=== PATIENT | male | born 1930 ===

== ENCOUNTER 2021-09-10 22:15 | Inpatient (IN) | payer MEDICARE ==
[~2021-09-10] VITALS: Ht 175.3 cm; Wt 75.8 kg
[2021-09-10 22:42] LABS: BASOPHILS ABSOLUTE AUTO 0.05 K/mm3 (0.00-0.23); BASOPHILS PERCENT AUTO 1 % (0-2); EOSINOPHILS ABSOLUTE AUTO 0.24 K/mm3 (0.00-0.68); EOSINOPHILS PERCENT AUTO 3 % (0-6); Hematocrit 37.9 % (37.0-53.0); Hemoglobin 12.7 g/dL (13.5-17.5); IMMATURE GRAN ABSOLUTE AUTO 0.13 K/mm3 (0.00-0.10); IMMATURE GRAN PERCENT AUTO 1 % (0-1); LYMPHOCYTES ABSOLUTE AUTO 2.24 K/mm3 (0.84-5.20); LYMPHOCYTES PERCENT AUTO 25 % (21-46); MONOCYTES ABSOLUTE AUTO 1.03 K/mm3 (0.16-1.47); MONOCYTES PERCENT AUTO 11 % (4-13); Mean Corpuscular HGB 31.7 pg (26.0-34.0); Mean Corpuscular HGB Conc 33.5 g/dL (31.5-36.5); Mean Corpuscular Volume 95 fL (80-100); Mean Platelet Volume 10.1 fL (9.1-12.4); NEUTROPHILS ABSOLUTE AUTO 5.42 K/mm3 (1.96-9.15); NEUTROPHILS PERCENT AUTO 60 % (41-73); Platelet Count 228 K/mm3 (150-400); RDW Coefficient Variation 13.2 % (11.7-14.2); RDW Standard Deviation 46.2 fL (35.1-46.3); Red Blood Cell Count 4.01 M/mm3 (4.30-5.90); White Blood Cell Count 9.11 K/mm3 (4.00-11.30)
[2021-09-10 22:51] LABS: Albumin, Blood 3.4 g/dL (3.4-5.0); Albumin/Globulin Ratio 1.1 (0.8-1.8); Bilirubin, Total 0.2 mg/dL (0.1-1.0); Bun/Creatinine Ratio 26.2 (12.0-20.0); Calcium, Blood 9.2 mg/dL (8.5-10.1); Creatinine, Blood 1.68 mg/dL (0.60-1.20); Globulin, Blood 3.2 g/dL (2.2-4.0); Potassium, Blood 4.6 mmol/L (3.5-5.5); Total Protein, Blood 6.6 g/dL (6.4-8.2)
[2021-09-10 22:54] LABS: International Normalized Ratio 1.04; Prothrombin Time Results 10.9 Sec (9.7-11.5)
[2021-09-11 02:59] LABS: CHOL/HDL RATIO 8.2; Cholesterol 214 mg/dL (50-200); HDL Cholesterol 26 mg/dL (>39); Low Density Lipoprotein Chol 131 mg/dL (0-110); Triglycerides 287 mg/dL (30-160); Very Low Density Lipoprot Chol 57 mg/dL (6-32)
[2021-09-11 04:51] LABS: BASOPHILS ABSOLUTE AUTO 0.06 K/mm3 (0.00-0.23); BASOPHILS PERCENT AUTO 0 % (0-2); EOSINOPHILS ABSOLUTE AUTO 0.03 K/mm3 (0.00-0.68); EOSINOPHILS PERCENT AUTO 0 % (0-6); Hematocrit 40.3 % (37.0-53.0); Hemoglobin 13.4 g/dL (13.5-17.5); IMMATURE GRAN ABSOLUTE AUTO 0.17 K/mm3 (0.00-0.10); IMMATURE GRAN PERCENT AUTO 1 % (0-1); LYMPHOCYTES ABSOLUTE AUTO 1.33 K/mm3 (0.84-5.20); LYMPHOCYTES PERCENT AUTO 7 % (21-46); MONOCYTES ABSOLUTE AUTO 1.27 K/mm3 (0.16-1.47); MONOCYTES PERCENT AUTO 7 % (4-13); Mean Corpuscular HGB 31.8 pg (26.0-34.0); Mean Corpuscular HGB Conc 33.3 g/dL (31.5-36.5); Mean Corpuscular Volume 96 fL (80-100); Mean Platelet Volume 10.1 fL (9.1-12.4); NEUTROPHILS ABSOLUTE AUTO 16.41 K/mm3 (1.96-9.15); NEUTROPHILS PERCENT AUTO 85 % (41-73); Platelet Count 233 K/mm3 (150-400); RDW Coefficient Variation 13.2 % (11.7-14.2); RDW Standard Deviation 46.3 fL (35.1-46.3); Red Blood Cell Count 4.22 M/mm3 (4.30-5.90); White Blood Cell Count 19.27 K/mm3 (4.00-11.30)
--- NOTE | 2021-09-11 05:08 | NUR ---
ASSUMED CARE/V TACH PATIENT ARRIVED TO ICU9 FROM ED @ 0420. ON ROOM AIR WITH SPO2 MID 90'S. BP ELEVATED WITH SBP 150'S-170'S MAPS IN 100'S. LARGE PURPLE DISCOLORATION WITH HEMATOMA TO LT EYE AND HEMATOMA TO LT FOREHEAD WITH ABRASION-GAUZE AND TAPE TO SITE. BRUISING PRESENT ON LT SHOULDER AND LT UPPER ARM. HEMATOMA TO RT AC WITH BLEEDING FROM PUNCTURE SITE. 18G IV TO THE LT AC AND 20G TO THE RT FA PATENT. LT FACIAL DROOP, SLURRED SPEECH, AND FLACCID LT ARM PRESENT. ABLE TO MOVE LT LEG ON COMMAND. REPORT COMPLETED WITH TURPENTINE DISTILLER. WHILE IN THE ROOM ASSESSING PATIENT HE HAD A 13 BEAT RUN OF VTACH. BP REMAINED ELEVATED STATED ABOVE AND RESPONDED TO VERBAL STIMULI. CALL MADE TO DR. COELLO TO GIVE UPDATE. PENDING MAG RESULT; NO OTHER ORDERS RECIEVED. UPON SUBSEQUENT EVENTS OF VTACH, EVIDENCE OF PACER ENDING V TACH EPISODES SEEN ON STRIPS. STRIPS HAVE BEEN ADDED TO CHART.
[2021-09-11 05:13] LABS: Calcium, Blood 9.4 mg/dL (8.5-10.1); Creatinine, Blood 1.63 mg/dL (0.60-1.20); Potassium, Blood 4.5 mmol/L (3.5-5.5)
[2021-09-11 07:48] LABS: Source, Urine Foley catheter
[2021-09-11 07:54] LABS: Appearance, Urine Clear (Clear); Bilirubin, Urine Neg (Neg); Blood, Urine Neg (Neg); Color, Urine Yellow (P-Yellow); Glucose Qualitative, Urine Neg (Neg); Ketones, Urine Neg (Neg); Leukocyte Esterase, Urine Neg (Neg); Nitrite, Urine Neg (Neg); Protein, Urine 2+ (Neg); Specific Gravity, Urine 1.015 (1.003-1.022); Urobilinogen, Urine NORM (Normal)
--- NOTE | 2021-09-11 08:00 | NUR ---
PT AWAKE AND ALERT-ORIENTED TO SELF ONLY. 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 PT LEFT EYE WITH LARGE HEMATOMA AND APPEARS TO BE SWOLLEN SHUT. PT REPORTS PAIN WHEN RN ATTEMPTED TO OPEN IT TO CHECK HIS PUPIL. RIGHT PUPIL 3 MM AND BRISK. GAUZE BANDAGE TO PT FOREHEAD IS C/D/I. LEFT SIDED FACIAL DROOP NOTED. PT HAS LEFT SIDED NEGLECT AND WEAKNESS. ONLY GROSS MOVEMENT NOTED TO LEFT UPPER AND LOWER EXTREMITY. PT FREQUENTLY ASKING TO GET OOB TO "GO TO THE BATHROOM." PT REMINDED SEVERAL TIMES THAT HE HAS A CATHETER, BUT PT NOT ABLE TO COMPREHEND. PT REACHES FOR LINES AND TUBES WHEN NOT RESTRAINED. PT HAS WHAT APPEARS TO BE AN ICD TO LEFT CHEST. ATRIAL PACING NOTED AND OCCASIONAL OVERRIDE PACING NOTED WITH WHAT APPEARS TO BE AF WITH RVR AND BBB-SEE ELECTRONIC RHYTHM STRIP. NO NOTED EDEMA. SBP TRENDING 150-160'S/80-90'S. LUNGS CLEAR. NO NOTED SOB. HOWEVER, PT SATS DOWN TO 80'S WHILE SLEEPING-THERFORE, PLACED ON 2 LITERS NASAL CANULA. PT NPO DUE TO CVA. NO NOTED GI DISTRESS. SCATTERED BRUISES TO LEFT SIDE. NO NOTED SKIN BREAKDOWN. MOSS TO BSD WITH ADEQUATE AMOUNT OF CLEAR, YELLOW URINE TO BSD. PT SON SHAWN UPDATED TO CURRENT STATUS AND PLAN OF CARE.
[2021-09-11 08:07] LABS: Bacteria Rare /hpf; Hyaline Casts Rare /lpf (0-2); Squamous Epithelial Cells Rare /hpf (Few)
--- NOTE | 2021-09-11 12:00 | NUR ---
NO ACUTE NEURO CHANGES. VS REMAIN STABLE. PT RESTS INTERMITTENTLY WHEN NOT DISTURBED. BOTH PT SON AND DAUGHTER UPDATED TO PT STATUS AND PLAN OF CARE.
--- NOTE | 2021-09-11 15:58 | NUR ---
NO NEURO CHANGES. PT ASKING TO GET OOB TO "GO TO THE BATHROOM." ATTEMPTED TO RE-ORIENT PATIENT UNSUCCESSFULLY. TEMP 99.[address] LAURENT IN TO SEE PT-FULL UPDATE GIVEN. PLAN TO DO MRI TOMORROW. DR. LAURENT UPDATED PT SON SHAWN.
--- NOTE | 2021-09-11 18:21 | NUR ---
PT RESTING QUIETLY WHEN NOT DISTURBED. OPENS RIGHT EYE TO VOICE AND COOPERATIVE WITH CARE. PT REMAINS CONFUSED, BUT PLEASANT. LEFT SIDED FACIAL DROOP AND LEFT SIDED NEGLECT CONTINUES. PT NPO. ATTEMPTED TO CONTACT DR. LAURENT IN REGARDS TO IVF-MESSAGE LEFT FOR DR. LAURENT.
--- NOTE | 2021-09-11 20:17 | NUR ---
ASSUMED CARE PATIENT LYING IN BED WITH EYES CLOSED. NC IN NOSTRILS AT 0.5 LPM WITH SPO2 MID 90'S. SOMNOLENT, DIFFICULT TO AROUSE. ORIENTED TO SELF, STATES HE IS IN [place] AND DOES NOT KNOW THE YEAR. FOLLOWS SIMPLE COMMANDS. RT PUPIL 2MM AND BRISK RESPONSE TO LIGHT. UNABLE TO ASSESS LT EYE D/T HEMATOMA AND SWELLING. LT SIDE NEGLECT WITH LT SIDED FACIAL DROOP. HEMATOMA TO LT EYELID, LT FOREHEAD, RT INNER EYELID. BRUISING TO MARY ANN AND LT SHOULDER SCATTERED BRUISING ON BUE, SCABS TO BLE. ATRIAL PACED RHYTHM WITH RATE 70'S. BP STABLE WITH SBP 130'S, MAPS 90'S. REPORT COMPLETED WITH BRYANT RN.
--- NOTE | 2021-09-11 21:32 | NUR ---
FLUIDS BEDSIDE SWALLOW EVAL COMPLETED AND FAILED. CALL MADE TO DR. HERNANDEZ FOR IV FLUID INITIATION. ORDERD RECIEVED.
--- NOTE | 2021-09-11 22:53 | NUR ---
MEDICATION LIST CALL MADE TO LAMAR KANG FOR MEDICATION LIST. SPOKE WITH RHETT IN COVID UNIT. REQUESTED MEDICATION LIST BE FAXED TO ICU.
[2021-09-11] MEDS ORDERED: ACET325 PO (23:48)
[2021-09-11] MEDS ORDERED: Amlodipine Bes2.5 MG PO (23:49)
[2021-09-11] MEDS ORDERED: DONE10 PO (23:51)
[2021-09-11] MEDS ORDERED: GLUCHON PO (23:51)
[2021-09-11] MEDS ORDERED: FISH OIL 1,2001 EAC7 PO (23:51)
[2021-09-11] MEDS ORDERED: LOPE2C PO (23:52)
[2021-09-11] MEDS ORDERED: MEMA10 PO (23:53)
[2021-09-11] MEDS ORDERED: METF500 PO (23:54)
[2021-09-11] MEDS ORDERED: MULTI-VITAMIN1 EAC2 PO (23:54)
[2021-09-11] MEDS ORDERED: OLAN2.5 PO (23:55)
[2021-09-11] MEDS ORDERED: SERT100 PO (23:56)
[2021-09-11] MEDS ORDERED: VITAMIN D310 MC4 PO (23:56)
--- NOTE | 2021-09-12 05:32 | NUR ---
SHIFT SUMMARY PATIENT IS STILL ORIENTED TO ONLY SELF. SLEPT THROUGH MOST OF SHIFT. AFTER INITIAL PERIOD OF AGITATION AT BEGINNING OF SHIFT, SOOTHING MUSIC ON TV TURNED ON AND PATIENT BECAME LESS AGITATED AND FELL ASLEEP. MOSS DRAINED 375ML DARK YELLOW URINE OUT. D5 1/2NS STARTED AT 100ML/HR. CALL MADE TO LAMAR KANG FOR MED LIST; MEDS RECONCILED. PATIENT TAKES METFORMIN FOR T2DM; CBG CHECKED AT MIDNIGHT AND WAS 180. DAUGHTER CALLED AT BEGINNING OF SHIFT AND UPDATE GIVEN. SWELLING OF LT EYE IMPROVED, BUT NOW THERE IS PURPLE DISCOLORATE ON THE FRONT OF EAR ADN LT SIDE NECK. PATIENT DENIED PAIN THROUGHOUT SHIFT. NO OTHER MAJOR CHANGES DURING SHIFT.
--- NOTE | 2021-09-12 08:00 | NUR ---
PT SLEEPING WHEN NOT DISTURBED. PT OPENS EYES TO VOICE. LEFT ORBITAL AND FACIAL SWELLING SEEMS IMPROVED, BUT THERE IS MORE BRUISING NOTED ON THE LEFT SIDE OF THE NECK. PUPILS 2MM AND BRISK. LEFT FACIAL DROOP AND NEGLECT CONTINUES. UNABLE TO GET PT TO FOLLOW COMMANDS TO MOVE HIS LEFT SIDE. SPEECH SEEMS MORE GARBLED THIS AM. TEMP 99.3. ECG REMAINS ATRIAL PACED WITH MOVE FREQUENT ECTOPY AND OVERRIDE PACING NOTED. SBP TRENDING 150'S. LUNGS REMAINS CLEAR, BUT DIMINISHED IN THE BASES. SATS>90% ON 0.5 LITERS NASAL CANULA. NO NOTED COUGH OR SOB. PT REMAINS NPO HE IS HIGH RISK FOR ASPIRATION. MOSS WITH SMALL AMOUNT OF DARK, YELLOW URINE TO BSD. COCCYX/BUTTOCK WITH MEPILEX PREVENTATIVE MEASURE-DRESSING PEELED BACK TO CONFIRM THAT SKIN REMAINS INTACT. THERE IS A SMALL SKIN TEAR TO THE LEFT WRIST THAT HAS A FOAM DOT IN PLACE. PT HAS SCATTERED BRUISING THROUGH OUT HIS LEFT SIDE. WILL DISCUSS WHETHER OR NOT LABS AND MRI TO BE DONE TODAY WITH DR. MEDEIROS. WILL REQUEST THAT ST, PT, OT EVALUATE WHETHER PATIENT IS ABLE TO REHABILITATE.
--- NOTE | 2021-09-12 11:23 | NUR ---
PT QUITE AGITATED. PT CRIES OUT FOR HELP AND DEMANDS "WATER." RN'S HAVE EXPLAINED TO PT FREQUENTLY THAT HE HAD HAD A STROKE AND THAT IT IS NOT SAFE FOR HIM TO HAVE WATER. HOWEVER, WITH THE BASELINE DEMENTIA AND THE LEFT NEGLECT, PT IS UNABLE TO COMPREHEND. FREQUENT ORAL CARE DONE. PT GIVEN A BATH AND LINEN CHANGE COMPLETED-TOLERATED FAIR. DR. MEDEIROS HERE TO SEE PT-FULL UPDATE GIVEN. PT TO HAVE CT SCAN OF THE HEAD INSTEAD OF MRI HE HAS ICD AND HX STENTS. PT NOW MEDICAL FLOOR STATUS. DR. MEDEIROS TO UPDATE FAMILY PENDING CT RESULTS.
--- NOTE | 2021-09-12 16:00 | NUR ---
CT COMPLETE-NO ACUTE NEURO CHANGES. PT SLEEPS INTERMITTENTLY. PT QUITE AGITATED WHEN AWAKE. PT REMAINS ORIENTED TO SELF ONLY. FOLLOWS COMMANDS AT TIMES. PT CRIES OUT FOR HELP AND REQUESTS WATER. PT REMAINS AT HIGH RISK FOR ASPIRATION. ORAL CARE DONE VERY FREQUENTLY.
--- NOTE | 2021-09-12 16:26 | NUR ---
PT SCREAMING FOR "HELP!" PT REQUESTING "I WANT TO SEE YOUR BOSS." ORAL CARE DONE, YANKEUR SUCTION PRODUCTIVE OF LARGE AMOUNT OF THICK, YELLOW SECRETIONS. PT HAS ZERO GAG REFLEX ON THE LEFT. PRAFUL, NURSING JAVA LEAD ENGINEER ATTEMPTED TO RE-ORIENT AND CONSOLE PT-PT REMAINS CONFUSED AND VERY AGITATED AT THIS TIME. CT RESULTS ARE COMPLETE- HAS ATTEMPTED TO CONTACT PT FAMILY TO DISCUSS PROGNOSIS AND PLAN OF CARE.
--- NOTE | 2021-09-12 17:22 | NUR ---
Case conferenced with ICU nursing re: current status and concerns, identified palliative care indicators. Plan to see pt and reach out to family as soon as staffing will allow.
--- NOTE | 2021-09-12 18:15 | NUR ---
PT APPEARS TO BE LESS AGITATED AT THIS TIME. PT RESTING QUIETLY WITHOUT NOTED DISTRESS.
--- NOTE | 2021-09-12 19:30 | NUR ---
ASSUMED CARE PATIENT LYING IN BED SLEEPING. EASILY AROUSABLE FROM SLEEP. ON ROOM AIR. TRACKS SOUND ON RT SIDE; LT SIDE NEGLECT. FOLLOWS COMMANDS. MOSS PATENT AND DRAINING TO GRAVITY. D5 IN 1/2 NS INF @ 100ML/HR. REPORT COMPLETED WITH BRYANT GALAVIZ.
--- NOTE | 2021-09-12 22:40 | NUR ---
DAUGHTER UPDATED ALLI SHARIF, CALLED FOR UPDATE ON PATIENT. UPDATE GIVEN. CALL TRANSFERRED INTO ROOM AND ASSISTED PATIENT WITH TALKING TO ALLI USING ROOM PHONE.
--- NOTE | 2021-09-13 07:56 | NUR ---
Assumed care. Pt sleeping, right wrist restaint in place. Bag changed on fluids.
--- NOTE | 2021-09-13 09:08 | NUR ---
PT NOW HAS COMFORT CARE ORDERS. ROXANOL GIVEN PT REPORTED DISCOMFORT. I WILL CALL FAMILY TO LET THEM KNOW THEY CAN COME VISIT 2 AT A TIME NOW THAT PT HAS COMFORT CARE ORDERS IN PLACE.
--- NOTE | 2021-09-13 09:37 | NUR ---
Pt son Alvaro GutiérrezMikala Called this AM. He was asking about discharge planning. The hope of the family is to get pt back up to [facility] facility with hospice. The son is going to come visit today and will be driving down from [place]. CHARLES for [employer] watch caser.
--- NOTE | 2021-09-13 10:40 | NUR ---
Assumed care [id number], Report given to Estephania on medical floor and pt transferred. Shift note: Pt has comfort care orders. Roxanol given x1 (5mg). Family was contacted this AM and will be coming to visit, will call to update on new room number.
--- NOTE | 2021-09-13 10:54 | NUR ---
Updated pt (Faby) and transferrred call to the medical floor for pt to talk with if he is able to.
--- NOTE | 2021-09-13 13:19 | NUR ---
TOOK OVER CARE AT 1055. GOT REPORT PRIOR TO RECIEVING PT IN ROOM. PT VERY TIRED DID COMPLAIN OF PAIN AND WAS TREATED PER EMAR. PT HAD CALL AND WAS ABLE TO TALK WITH PHONE HELD UP TO HIS EAR. PT RESTING AT THIS TIME WILL CONTINUE TO MONITOR.
--- NOTE | 2021-09-13 17:46 | NUR ---
Case conference with pt's bedside RN after transition to comfort care and transfer to medical floor. Pt sleeping and looks comfortable at this time. He is not restless or agitated. Discussed plan of care, prn medications that are working well for pt and plan for him to return to [facility] with hospice support. EMR reviewed and CM working with family on d/c planning. Will reassess for s/s management tomorrow.
--- NOTE | 2021-09-13 18:17 | NUR ---
PT AOX1 AND COOPERATIVE OF CARE. PT WAS ABLE TO TALK A BIT WHEN HE ARRIVED, BUT STATED HE HAD PAIN. PT WAS TREATED PER EMAR FOR COMFORT CARE AND HAS BEEN COMFORTABLE NEEDED REPOSITIONED Q2 HRS. PT IS RESTING COMFORTABLY AT THIS TIME WILL CONTINUE TO MONITOR.
--- NOTE | 2021-09-14 06:19 | NUR ---
PM SHIFT SUMMARY PATIENT SLEPT THE ENTIRE EVENING UNTIL ABOUT 0500, WHEN HE BEGAN TO ASK FOR HELP. UPON QUESTIONING, HE STATED HE WAS IN PAIN. I GAVE 10MG ROXINOL, WHICH IS EQUAL TO PREVIOUS DOSES HE HAD BEEN GIVEN. AT RESSASSMENT TIME, PATIENT WAS SOUND ASLEEP AGAIN. HE HAS A LOT OF BRUSING AND HEMATOMA ON LEFT SIDE OF FACE, FOREHEAD AND NACK, WELL SOME MINOR BRUISING ON BUE. HE IS COMFORT CARE AT THIS TIME.
[2021-09-14] MEDS ORDERED: Chromium Pico400 MCG PO (08:24)
[2021-09-14] MEDS ORDERED: DULCOLAX400 MG/5 M PO (08:25)
--- NOTE | 2021-09-14 13:18 | NUR ---
Comfort care visit made this am. Pt sleeping and did not wake to voice. Brief restlessness noted with arm waving & picking at sheet. Pt did not demonstrate any other nonverbal indicators of pain/distress. Dk yellow/brown urine noted in yang drainage bag, scant amount since shift change. No visitors.
--- NOTE | 2021-09-14 18:12 | NUR ---
PT HAS BEEN RESTING COMFORTABLY ALL DAY. PT DENIED PAIN AT START OF SHIFT AND THEN LATER IN THE DAY REQUESTED PAIN MEDS. PT DID WELL WITH THIS AND WAS STILL ABLE TO WAKE UP AND ANSWER QUESTIONS WHEN NEEDED. PT TURNED Q2 HRS AND REPOSITIONED.NO DISTRESS NOTE.
--- NOTE | 2021-09-15 07:28 | NUR ---
PM SHIFT SUMMARY PATIENT SLEPT THE ENTIRE SHIFT. MY SPINDLE PLUMBER AND I CHECKED ON HIM QUITE A FEW TIMES TO SEE HE WAS MOVING HIS ARM AND SNORING QUITE HEAVILY. HE ONLY WOKE ONCE BRIEFLY AND STATED HE DID NOT NEED ANYTHIGN WHEN I ASKED ABOUT PAIN AND COMFORT. 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 HE IS COMFORT CARE PER FAMILY DECISIONS.
--- NOTE | 2021-09-15 08:54 | NUR ---
Comfort Care Visit Pt resting in bed with his eyes closed. Periods of apnea noted. Pt left undisturbed at this time. Pt apppears comfortable with no S/S of distress at this time. Palliative Care will remain available.
--- NOTE | 2021-09-15 10:04 | NUR ---
PT SLEEPING AT THIS TIME. AWAKENS TO VERBAL STIMULI, DENIED PAIN AT THIS TIME THE PT DID NOT OPEN HIS EYES.
[2021-09-15 14:01] LABS: SARS-Cov-2 (COVID-19) PCR, MMC POSITIVE (NEGATIVE)
--- NOTE | 2021-09-15 14:45 | NUR ---
PT OPENS EYES TO VERBAL STIMULI, PT REPOSITIONED. MOUTH SWABBED PT APPEARS TO BE COMFORTABLE AT THIS TIME
--- NOTE | 2021-09-15 14:47 | NUR ---
PT AWAKE CALLED OUT FOR HELP, GAVE ROXINOL 1O MG FOR PAIN, GAVE SIPS OF WATER PT REPOSITIONED. PT IS TALKING MORE EXPRESSED SOME NEEDS
--- NOTE | 2021-09-15 17:00 | NUR ---
PT MORE RESTLESS GAVE 10 MG ROXINOL. PT HAS PERIODS OF APNEA WHILE ASLEEP
--- NOTE | 2021-09-15 18:03 | NUR ---
PT APPEARS TO BE COMFORTABLE AT THIS TIMES. APPEARS TO HAVE LONGER APNIC PERIODS WHILE SLEEPING. CALL LIGHT IN REACH
--- NOTE | 2021-09-16 06:11 | NUR ---
PM SHIFT SUMMARY PATIENT SLEPT THE ENTIRE SHIFT THIS EVENING. HE ONLY WOKE UP FOR ABOUT 1 MINUTE EACH TIME WE REPOSITIONED HIM. I ASKED IF HE WAS FEELING ANY PAIN AND NEEDED ANYTHING, WHICH HE STATED HE DID NOT. I SPOKE WITH HIS DAUGHTER HAKAN ON THE PHONE IRISDAYANA AND GAVE HER SOME BASIC UPDATES. SHE STATES THAT THE FAMILY IS HOPING TO HAVE HIM BACK IN [place] AND THAT THEY KNOW THEY DON'T HAVE MUCH TIME LEFT WITH HIM.
--- NOTE | 2021-09-16 08:26 | NUR ---
Comfort Care Visit Pt resting in bed with his eyes closed. Pt mildly reacts to gentle voice then drifts back to sleep. No S/S of distress at this time. Palliative Care will remain available.
--- NOTE | 2021-09-16 09:56 | NUR ---
PT APPEARES TO BE RESTING COMFORTABLY AT THIS TIME
--- NOTE | 2021-09-16 09:57 | NUR ---
PT IS AWAKE DENIED PAIN. PT WAS GIVEN DROPS OF WATER. PT STILL ASPIRATES IF GIVEN MORE THAN DROPS. PT WAS REPOSITIONED FOR COMFORT. CALL LIGHT IN REACH
[2021-09-16] MEDS ORDERED: ASPI81CH PO (13:33)
[2021-09-16] MEDS ORDERED: ATROPINE SULFATE2 M1 SL (13:34)
[2021-09-16] MEDS ORDERED: MORP20L SL (13:35)
[2021-09-16] MEDS ORDERED: PROM12.5S PR (13:36)
[2021-09-16] MEDS ORDERED: TRANSDERM-SCOP1 EAC9 TD (13:37)
--- NOTE | 2021-09-16 14:43 | NUR ---
PT DISCHARGED THE PT DISCHARGED TO [facility], PT WAS AWAKE ET THE TIME OF DC. ROXINOL 10 MG WAS GIVEN PRIOR TO TRANSPORT. THE PT APPEARED TO BE BREATHING EASILY ON RA. PT WAS TRANSFERED VIA GURNEY ACCOMPANIED BY [facility]. BELONGINGS RELEASED TO SELF
--- NOTE | 2021-09-16 15:03 | NUR ---
TRANSFER GAVE REPORT TO YUMI AT [facility]. PT IS IN TRANSPORT AT THIS TIME
== END 2021-09-16 14:37 | disposition hospice, home (50) | DRG 61 ==
LOC: ER 22:15 → PCU 22:16 → ICUW 09-11 04:18 → MEDS 09-11 13:03 → ICUW 09-11 13:03 → MEDS 09-13 10:46
PROVIDERS: Internal Medicine; Student in an Organized Health Care Education/Training Program; ADMIT Family Medicine
PROC: 3E03317 Introduction of Other Thrombolytic into Peripheral Vein, Percutaneous Approach (ICD-10-PCS; principal; 2021-09-11)
PROC: 8E0ZXY6 Isolation (ICD-10-PCS; 2021-09-11)
DX: I63.311 Cerebral infarction due to thrombosis of right middle cerebral artery (principal); U07.1 COVID-19; G81.94 Hemiplegia, unspecified affecting left nondominant side; I47.2 Ventricular tachycardia; I12.9 Hypertensive chronic kidney disease with stage 1 through stage 4 chronic kidney disease, or unspecified chronic kidney disease; N18.30 Chronic kidney disease, stage 3 unspecified; F03.90 Unspecified dementia, unspecified severity, without behavioral disturbance, psychotic disturbance, mood disturbance, and anxiety; Z51.5 Encounter for palliative care; S05.12XA Contusion of eyeball and orbital tissues, left eye, initial encounter; Z66 Do not resuscitate; I63.39 Cerebral infarction due to thrombosis of other cerebral artery; Z88.8 Allergy status to other drugs, medicaments and biological substances; R47.81 Slurred speech; I69.992 Facial weakness following unspecified cerebrovascular disease; D64.9 Anemia, unspecified; R41.0 Disorientation, unspecified; I67.82 Cerebral ischemia; Z88.5 Allergy status to narcotic agent
CPT/HCPCS: 36415; 51702; 70450; 70496; 70498; 80048; 80053; 80061; 81001; 82947; 83735; 85025; 85610; 85730; 93005; 93010; 96374; 97110; 97162; 99285-25; A9270; C8929; G0378; J3101; J7042; Q9957; Q9967; U0004